=== PATIENT | male | born 1970 | race African-American/Black ===

== ENCOUNTER 2018-03-03 10:20 | Emergency (ER) | payer BC ==
--- NOTE | 2018-03-03 11:03 | RAD REPORT ---
EXAM DESCRIPTION: RAD - Hand Right 3 View - 03/03/2018 10:50 am CLINICAL HISTORY: Third digit pain. COMPARISON: None. FINDINGS: Mild soft tissue swelling affects the third finger. No acute fracture or dislocation seen. No aggressive marrow lesion. Evidence of an old triquetrum fracture noted.
--- NOTE | 2018-03-03 11:27 | ER ---
Nurse's Notes [facility] Name: Edgar Soria Age: 47 yrs Sex: Male : 1970 Arrival Date: 03/03/2018 Time: 10:25 Bed Treatment Private MD: None, None Diagnosis: Subungal hematoma Presentation: 03/03 10:29 Presenting complaint: Patient states: 2 days ago, i hurt my R middle finger on a hj cabinet; denies tingling and numbness;. Transition of care: patient was not received from another setting of care. Onset of symptoms was March 03, 2018. Care prior to arrival: None. 10:29 Method Of Arrival: Ambulatory 10:29 Acuity: KARMA 4 11:00 Initial Sepsis Screen: Does the patient meet any 2 criteria? No. Patient's initial iw sepsis screen is negative. Does the patient have a suspected source of infection? No. Patient's initial sepsis screen is negative. Triage Assessment: 10:30 General: Appears in no apparent distress. uncomfortable, Behavior is calm, cooperative, hj appropriate for age. Pain: Complains of pain in dorsal aspect of distal phalanx of right middle finger. Musculoskeletal: Circulation, motion, and sensation intact. Capillary refill < 3 seconds, Range of motion: intact in all extremities. Injury Description: Crush injury. Historical: - Allergies: 10:30 No Known Allergies; hj - Home Meds: 10:30 None [Active]; hj - PMHx: 10:30 None; hj - PSHx: 10:30 None; hj - Immunization history:: Adult Immunizations. - Social history:: Smoking status: . Screenin:00 Abuse screen: Denies threats or abuse. Denies injuries from another. Nutritional iw screening: No deficits noted. Tuberculosis screening: No symptoms or risk factors identified. Fall Risk None identified. Assessment: 11:10 General: Appears in no apparent distress. comfortable, Behavior is calm, cooperative. iw Pain: Complains of pain in dorsal aspect of distal phalanx of right middle finger. Neuro: Level of Consciousness is awake, alert, obeys commands, Oriented to person, place, time. Cardiovascular: Patient's skin is warm and dry. Respiratory: Respiratory effort is even, unlabored. Derm: Skin is pink, warm \T\ dry. normal. Musculoskeletal: Range of motion: intact in all extremities. Vital Signs: 10:31 BP 134 / 75; Pulse 60; Resp 18; Temp 98.1(TE); Pulse Ox 98% on R/A; Weight 86.18 kg; hj Height 5 ft. 9 in. (175.26 cm); Pain 5/10; 10:31 Body Mass Index 28.06 (86.18 kg, 175.26 cm) ED Course: 10:25 Patient arrived in ED. mr 10:25 None, None is Private Physician. mr 10:29 Triage completed. hj 10:30 Arm band placed on right wrist. hj 10:44 X-ray completed. Portable x-ray completed in exam room. Patient tolerated procedure la2 well. 10:50 XRAY Hand RIGHT 3 View In Process Unspecified. EDMS 11:10 Patient has correct armband on for positive identification. iw 11:20 Lisa Romero FNP-C is [facility]. snw 11:20 Stephen Larson MD is Attending Physician. snw 11:28 Sonali Beckett, RN is Primary Nurse. iw 12:10 No provider procedures requiring assistance completed. Patient did not have IV access iw during this emergency room visit. Administered Medications: No medications were administered Outcome: 11:26 Discharge ordered by . snw 12:10 Discharged to home ambulatory. iw 12:10 Condition: good 12:10 Discharge instructions given to patient, Instructed on discharge instructions, follow up and referral plans. medication usage, Demonstrated understanding of instructions, follow-up care, medications, Prescriptions given X 1. 12:12 Patient left the ED. bd Signatures: Dispatcher [employer] EDMS Ramila Floyd Shelly, FNP-C COMMUTATOR REPAIRER-Dilcia Springer mr Sonali Beckett, RN RN Mendez Sanabria RN RN Melissa Williamson la2 Corrections: (The following items were deleted from the chart) 10:30 10:29 Presenting complaint: Patient states: 2 days ago, i hurt my R middle finger on a hj cabinet; hj 10:33 10:31 Pulse 60bpm; Resp 18bpm; Pulse Ox 98% RA; Temp 98.1F Temporal; 86.18 kg; Height 5 hj ft. 9 in.; BMI: 28.0; Pain 5/10; hj
--- NOTE | 2018-03-03 11:27 | EDPHYS ---
Physician Documentation [facility] Name: Edgar Soria Age: 47 yrs Sex: Male : 1970 Arrival Date: 03/03/2018 Time: 10:25 Bed Treatment Private MD: None, None ED Physician Stephen Larson HPI: 03/03 11:29 This 47 yrs old Black Male presents to ER via Ambulatory with complaints of Finger snw Injury. 11:29 The patient or guardian reports a contusion, pain, swelling. The complaints affect the snw DIP of right middle finger. Context: The problem was sustained at home, resulted from a crush injury, by a house door. Onset: The symptoms/episode began/occurred acutely. Modifying factors: The symptoms are alleviated by nothing. Severity of symptoms: At their worst the symptoms were moderate. The patient has not experienced similar symptoms in the past. The patient has not recently seen a physician. working on a cabinet that fell onto distal right middle finger. Historical: - Allergies: 10:30 No Known Allergies; hj - Home Meds: 10:30 None [Active]; hj - PMHx: 10:30 None; hj - PSHx: 10:30 None; hj - Immunization history:: Adult Immunizations. - Social history:: Smoking status: . ROS: 11:29 Constitutional: Negative for fever, chills, and weight loss, Eyes: Negative for injury, snw pain, redness, and discharge, ENT: Negative for injury, pain, and discharge, Neck: Negative for injury, pain, and swelling, Cardiovascular: Negative for chest pain, palpitations, and edema, Respiratory: Negative for shortness of breath, cough, wheezing, and pleuritic chest pain, Abdomen/GI: Negative for abdominal pain, nausea, vomiting, diarrhea, and constipation, Back: Negative for injury and pain, : Negative for injury, bleeding, discharge, and swelling, Skin: Negative for injury, rash, and discoloration, Neuro: Negative for headache, weakness, numbness, tingling, and seizure. 11:29 MS/extremity: Positive for injury or acute deformity, pain, of the dorsal aspect of distal phalanx of right middle finger. Exam: 11:28 Constitutional: This is a well developed, well nourished patient who is awake, alert, snw and in no acute distress. Head/Face: Normocephalic, atraumatic. Eyes: Pupils equal round and reactive to light, extra-ocular motions intact. Lids and lashes normal. Conjunctiva and sclera are non-icteric and not injected. Cornea within normal limits. Periorbital areas with no swelling, redness, or edema. ENT: Nares patent. No nasal discharge, no septal abnormalities noted. Tympanic membranes are normal and external auditory canals are clear. Oropharynx with no redness, swelling, or masses, exudates, or evidence of obstruction, uvula midline. Mucous membranes moist. Neck: Trachea midline, no thyromegaly or masses palpated, and no cervical lymphadenopathy. Supple, full range of motion without nuchal rigidity, or vertebral point tenderness. No Meningismus. Chest/axilla: Normal chest wall appearance and motion. Nontender with no deformity. No lesions are appreciated. Cardiovascular: Regular rate and rhythm with a normal S1 and S2. No gallops, murmurs, or rubs. Normal PMI, no JVD. No pulse deficits. Respiratory: Lungs have equal breath sounds bilaterally, clear to auscultation and percussion. No rales, rhonchi or wheezes noted. No increased work of breathing, no retractions or nasal flaring. Abdomen/GI: Soft, non-tender, with normal bowel sounds. No distension or tympany. No guarding or rebound. No evidence of tenderness throughout. Back: No spinal tenderness. No costovertebral tenderness. Full range of motion. Skin: Warm, dry with normal turgor. Normal color with no rashes, no lesions, and no evidence of cellulitis. Neuro: Awake and alert, GCS 15, oriented to person, place, time, and situation. Cranial nerves II-XII grossly intact. Motor strength 5/5 in all extremities. Sensory grossly intact. Cerebellar exam normal. Normal gait. Psych: Awake, alert, with orientation to person, place and time. Behavior, mood, and affect are within normal limits. 11:28 Musculoskeletal/extremity: Extremities: grossly normal except: noted in the dorsal aspect of distal phalanx of right middle finger: pain, tenderness, ROM: intact in all extremities. Vital Signs: 10:31 BP 134 / 75; Pulse 60; Resp 18; Temp 98.1(TE); Pulse Ox 98% on R/A; Weight 86.18 kg; hj Height 5 ft. 9 in. (175.26 cm); Pain 5/10; 10:31 Body Mass Index 28.06 (86.18 kg, 175.26 cm) MDM: 11:20 Patient medically screened. snw 11:29 Data reviewed: vital signs, nurses notes. Data interpreted: Pulse oximetry: on room air snw is 98 %. Interpretation: normal. Counseling: I had a detailed discussion with the patient and/or guardian regarding: the historical points, exam findings, and any diagnostic results supporting the discharge/admit diagnosis, the presence of at least one elevated blood pressure reading (>120/80) during this emergency department visit, radiology results, to return to the emergency department if symptoms worsen or persist or if there are any questions or concerns that arise at home. Special discussion: I have referred the patient to see his PCP for further evaluation of high blood pressure. Based on the history and exam findings, there is no indication for further emergent testing or inpatient evaluation. I discussed with the patient/guardian the need to see the primary care provider for further evaluation of the symptoms. 03/03 10:32 Order name: XRAY Hand RIGHT 3 View; Complete Time: 11:11 Administered Medications: No medications were administered Disposition: 03/03/18 11:26 Discharged to Home. Impression: Subungal hematoma. - Condition is Stable. - Discharge Instructions: Hypertension, Subungual Hematoma. - Prescriptions for Diclofenac Sodium 75 mg Oral Tablet Sustained Release - take 1 tablet by ORAL route 2 times per day; 30 tablet. - Work release form, Medication Reconciliation Form, Thank You Letter, Antibiotic Education, Prescription Opioid Use form. - Follow up: Private Physician; When: 2 - 3 days; Reason: Recheck today's complaints, Continuance of care, Re-evaluation by your physician. Follow up: Emergency Department; When: As needed; Reason: Worsening of condition. Addendum: 03/06/2018 06:09 Co-signature as Attending Physician, Stephen Larson MD Available for consultation at p s1 all times. . Signatures: Dispatcher [employer] EDMS Ramila Floyd Shelly, WATER PUMPER-C WATER PUMPER-Csnw Sonali Beckett RN RN Mendez Sanabria RN RN hj Singer, Phillip, MD MD ps1
== END 2018-03-03 12:12 | disposition home or self-care (01) ==
LOC: ER 10:20
DX: S60.131A Contusion of right middle finger with damage to nail, initial encounter (principal); W23.0XXA Caught, crushed, jammed, or pinched between moving objects, initial encounter; Y93.9 Activity, unspecified; Y92.009 Unspecified place in unspecified non-institutional (private) residence as the place of occurrence of the external cause
CPT/HCPCS: 99283

== ENCOUNTER 2019-06-18 00:22 | Emergency (ER) | payer BC ==
--- NOTE | 2019-06-18 01:58 | ER ---
Nurse's Notes [facility] Name: Edgar Soria Age: 48 yrs Sex: Male : 1970 Arrival Date: 06/18/2019 Time: 00:25 Bed 19 Private MD: Diagnosis: Nausea;Diarrhea, unspecified Presentation: 06/18 00:40 Presenting complaint: Patient states: no pain but I feel like I am going to vomit and dm5 have a full feeling. it started after eating shrimp. Pt states he has had 7 watery bowel movements since dinner. Transition of care: patient was not received from another setting of care. Onset of symptoms was June 17, 2019 at 14:00. Risk Assessment: Do you want to hurt yourself or someone else? Patient reports no desire to harm self or others. Initial Sepsis Screen: Does the patient meet any 2 criteria? No. Patient's initial sepsis screen is negative. Does the patient have a suspected source of infection? No. Patient's initial sepsis screen is negative. Care prior to arrival: None. 00:40 Method Of Arrival: Ambulatory dm5 00:40 Acuity: KARMA 3 dm5 Triage Assessment: 00:43 General: Appears in no apparent distress. Behavior is calm, cooperative. Pain: Denies dm5 pain. Neuro: Level of Consciousness is awake, alert, obeys commands, Oriented to person, place, time. Cardiovascular: No deficits noted. Respiratory: Airway is patent Respiratory effort is even, unlabored, relaxed, Respiratory pattern is regular, symmetrical. GI: Reports diarrhea, nausea, "full feeling". Derm: Skin is pink, warm \\T\\ dry. Historical: - Allergies: 00:43 No Known Allergies; dm5 - Home Meds: 00:43 None [Active]; dm5 - PMHx: 00:43 None; dm5 - PSHx: 00:43 None; dm5 - Immunization history:: Adult Immunizations up to date. - Social history:: Smoking status: Patient/guardian denies using tobacco. - Ebola Screening: : Patient negative for fever greater than or equal to 101.5 degrees Fahrenheit, and additional compatible Ebola Virus Disease symptoms Patient denies exposure to infectious person Patient denies travel to an Ebola-affected area in the 21 days before illness onset No symptoms or risks identified at this time. - Family history:: not pertinent. Screenin:29 Abuse screen: Denies threats or abuse. Denies injuries from another. Nutritional rr5 screening: No deficits noted. Tuberculosis screening: No symptoms or risk factors identified. Fall Risk None identified. Total Blum Fall Scale indicates No Risk (0-24 pts). Assessment: 01:15 General: Appears in no apparent distress. comfortable, Behavior is calm, cooperative, rr5 appropriate for age. 01:15 Pain: Complains of pain in abdomen Pain does not radiate. Pain currently is 2 out of 10 rr5 on a pain scale. Quality of pain is described as aching, Pain began gradually, Is intermittent. Neuro: Level of Consciousness is awake, alert, obeys commands, Oriented to person, place, time, situation, Appropriate for age. Cardiovascular: Capillary refill < 3 seconds Patient's skin is warm and dry. Respiratory: Airway is patent Respiratory effort is even, unlabored, Respiratory pattern is regular, symmetrical. GI: Abdomen is round Bowel sounds present X 4 quads. Abd is soft Reports upper abdominal pain, diarrhea, nausea, vomiting. : No signs and/or symptoms were reported regarding the genitourinary system. EENT: No signs and/or symptoms were reported regarding the EENT system. Derm: Skin is intact, Skin is pink, warm \\T\\ dry. Skin temperature is warm. Musculoskeletal: Circulation, motion, and sensation intact. Capillary refill < 3 seconds. 02:00 Reassessment: Patient appears in no apparent distress at this time. Patient is alert, rr5 oriented x 3, equal unlabored respirations, skin warm/dry/pink. discharge instruction given and explained without complaints made. Vital Signs: 00:43 BP 133 / 85; Pulse 58; Resp 16; Temp 97.9; Pulse Ox 99% on R/A; Weight 92.99 kg; Height dm5 5 ft. 10 in. (177.80 cm); Pain 0/10; 02:00 BP 124 / 82; Pulse 60; Resp 17; Pulse Ox 100% on R/A; rr5 00:43 Body Mass Index 29.41 (92.99 kg, 177.80 cm) dm5 ED Course: 00:25 Patient arrived in ED. ds1 00:42 Triage completed. dm5 00:43 Arm band placed on left wrist. Patient placed in waiting room. dm5 01:06 Shane Sinclair, RN is Primary Nurse. rr5 01:15 Patient has correct armband on for positive identification. Bed in low position. Call rr5 light in reach. Side rails up X2. Pulse ox on. NIBP on. 01:22 Tavo Wilson MD is Attending Physician. minoo 02:05 No provider procedures requiring assistance completed. Patient did not have IV access rr5 during this emergency room visit. Administered Medications: No medications were administered Outcome: 01:56 Discharge ordered by . minoo 02:05 Discharged to home ambulatory. rr5 02:05 Condition: stable 02:05 Discharge instructions given to patient, Instructed on discharge instructions, follow up and referral plans. medication usage, Demonstrated understanding of instructions, follow-up care, medications, Prescriptions given X 2. 02:07 Patient left the ED. rr5 Signatures: Karla Sims, RN RN dm5 Tavo Wilson MD MD cha Sanford, Demi ds1 Shane Sinclair, RN RN rr5
--- NOTE | 2019-06-18 01:59 | EDPHYS ---
Physician Documentation [facility] Name: Edgar Soria Age: 48 yrs Sex: Male : 1970 Arrival Date: 06/18/2019 Time: 00:25 Bed 19 Private MD: AVERY Physician Tavo Wilson HPI: 06/18 01:52 This 48 yrs old Black Male presents to ER via Ambulatory with complaints of Abdominal minoo Pain. 01:52 The patient presents to the emergency department with nausea, diarrhea. Onset: The minoo symptoms/episode began/occurred just prior to arrival, yesterday. Possible causes: unknown. The symptoms are aggravated by nothing. The symptoms are alleviated by nothing. Associated signs and symptoms: The patient has no apparent associated signs or symptoms. Severity of symptoms: At their worst the symptoms were mild in the emergency department the symptoms are unchanged. The patient has not experienced similar symptoms in the past. Historical: - Allergies: 00:43 No Known Allergies; dm5 - Home Meds: 00:43 None [Active]; dm5 - PMHx: 00:43 None; dm5 - PSHx: 00:43 None; dm5 - Immunization history:: Adult Immunizations up to date. - Social history:: Smoking status: Patient/guardian denies using tobacco. - Ebola Screening: : Patient negative for fever greater than or equal to 101.5 degrees Fahrenheit, and additional compatible Ebola Virus Disease symptoms Patient denies exposure to infectious person Patient denies travel to an Ebola-affected area in the 21 days before illness onset No symptoms or risks identified at this time. - Family history:: not pertinent. ROS: 01:52 Constitutional: Negative for fever, chills, and weight loss, Eyes: Negative for injury, minoo pain, redness, and discharge, ENT: Negative for injury, pain, and discharge, Neck: Negative for injury, pain, and swelling, Cardiovascular: Negative for chest pain, palpitations, and edema, Respiratory: Negative for shortness of breath, cough, wheezing, and pleuritic chest pain, Back: Negative for injury and pain, : Negative for injury, bleeding, discharge, and swelling, MS/Extremity: Negative for injury and deformity, Skin: Negative for injury, rash, and discoloration, Neuro: Negative for headache, weakness, numbness, tingling, and seizure, Psych: Negative for depression, anxiety, suicide ideation, homicidal ideation, and hallucinations, Allergy/Immunology: Negative for hives, rash, and allergies, Endocrine: Negative for neck swelling, polydipsia, polyuria, polyphagia, and marked weight changes, Hematologic/Lymphatic: Negative for swollen nodes, abnormal bleeding, and unusual bruising. 01:52 Abdomen/GI: Positive for nausea, diarrhea. Exam: 01:52 Constitutional: This is a well developed, well nourished patient who is awake, alert, minoo and in no acute distress. Head/Face: Normocephalic, atraumatic. Eyes: Pupils equal round and reactive to light, extra-ocular motions intact. Lids and lashes normal. Conjunctiva and sclera are non-icteric and not injected. Cornea within normal limits. Periorbital areas with no swelling, redness, or edema. ENT: Nares patent. No nasal discharge, no septal abnormalities noted. Tympanic membranes are normal and external auditory canals are clear. Oropharynx with no redness, swelling, or masses, exudates, or evidence of obstruction, uvula midline. Mucous membranes moist. Neck: Trachea midline, no thyromegaly or masses palpated, and no cervical lymphadenopathy. Supple, full range of motion without nuchal rigidity, or vertebral point tenderness. No Meningismus. Chest/axilla: Normal chest wall appearance and motion. Nontender with no deformity. No lesions are appreciated. Cardiovascular: Regular rate and rhythm with a normal S1 and S2. No gallops, murmurs, or rubs. Normal PMI, no JVD. No pulse deficits. Respiratory: Lungs have equal breath sounds bilaterally, clear to auscultation and percussion. No rales, rhonchi or wheezes noted. No increased work of breathing, no retractions or nasal flaring. Back: No spinal tenderness. No costovertebral tenderness. Full range of motion. Male : Normal genitalia with no discharge or lesions. Skin: Warm, dry with normal turgor. Normal color with no rashes, no lesions, and no evidence of cellulitis. MS/ Extremity: Pulses equal, no cyanosis. Neurovascular intact. Full, normal range of motion. Neuro: Awake and alert, GCS 15, oriented to person, place, time, and situation. Cranial nerves II-XII grossly intact. Motor strength 5/5 in all extremities. Sensory grossly intact. Cerebellar exam normal. Normal gait. Psych: Awake, alert, with orientation to person, place and time. Behavior, mood, and affect are within normal limits. 01:52 Abdomen/GI: Exam negative for Inspection: abdomen appears normal, Bowel sounds: normal, Palpation: abdomen is soft and non-tender, Liver: no appreciated palpable abnormalities, Hernia: not appreciated. Vital Signs: 00:43 BP 133 / 85; Pulse 58; Resp 16; Temp 97.9; Pulse Ox 99% on R/A; Weight 92.99 kg; Height dm5 5 ft. 10 in. (177.80 cm); Pain 0/10; 02:00 BP 124 / 82; Pulse 60; Resp 17; Pulse Ox 100% on R/A; rr5 00:43 Body Mass Index 29.41 (92.99 kg, 177.80 cm) dm5 MDM: 01:22 Patient medically screened. [facility] 01:55 Data reviewed: vital signs, nurses notes. [facility] Administered Medications: No medications were administered Disposition: 06/18/19 01:56 Discharged to Home. Impression: Nausea, Diarrhea, unspecified. - Condition is Stable. - Discharge Instructions: Food Choices to Help Relieve Diarrhea, Adult, Diarrhea, Adult, Nausea, Adult, Diarrhea, Adult, [id number]. - Prescriptions for Zofran 4 mg Oral Tablet - take 1 tablet by ORAL route every 12 hours As needed; 14 tablet. Bentyl 20 mg Oral Tablet - take 1 tablet by ORAL route every 6 hours As needed; 20 tablet. - Medication Reconciliation Form, Thank You Letter, Antibiotic Education, Prescription Opioid Use form. - Follow up: Private Physician; When: 2 - 3 days; Reason: Recheck today's complaints, Continuance of care, Re-evaluation by your physician. - Problem is new. - Symptoms have improved. Signatures: Karla Sims RN RN dm5 Tavo Wilson MD MD cha Roque, Raymond RN RN rr5 Corrections: (The following items were deleted from the chart) 02:07 01:56 06/18/2019 01:56 Discharged to Home. Impression: Nausea; Diarrhea, unspecified. rr5 Condition is Stable. Forms are Medication Reconciliation Form, Thank You Letter, Antibiotic Education, Prescription Opioid Use. Follow up: Private Physician; When: 2 - 3 days; Reason: Recheck today's complaints, Continuance of care, Re-evaluation by your physician. Problem is new. Symptoms have improved. minoo
== END 2019-06-18 02:07 | disposition home or self-care (01) ==
LOC: ER 00:22
DX: R19.7 Diarrhea, unspecified (principal)
CPT/HCPCS: 99283

== ENCOUNTER 2019-08-26 08:46 | Emergency (ER) | payer BC ==
[2019-08-26] MEDS ORDERED: KETOROLAC 30 MG/ML INJ ONE (09:42)
[2019-08-26 09:58] LABS: Urine Bacteria NONE SEEN /HPF (NONE SEEN); Urine Culture Reflex Order NOT NEEDED; Urine RBC NONE SEEN /HPF (NONE SEEN)
[2019-08-26 09:59] LABS: Absolute Lymphocytes (CBC) 1.3 K/uL (0.7-4.9); Basophils % 0.3 % (0-1.3); Hematocrit 42.7 % (39.6-49.0); Lymphocytes % 41.1 % (15.3-44.8); RBC Red Blood Cell Count 5.21 M/uL (4.33-5.43)
[2019-08-26 10:24] LABS: Bilirubin Direct 0.1 mg/dL (0-0.2); Bilirubin Total 0.3 mg/dL (0.2-1.0); Potassium 3.9 mmol/L (3.5-5.1); Protein, Total 7.8 g/dL (6.4-8.2)
--- NOTE | 2019-08-26 10:27 | RAD REPORT ---
EXAM DESCRIPTION: CT - Stone Protocol - 08/26/2019 9:54 am CLINICAL HISTORY: ABD PAIN COMPARISON: No comparisons TECHNIQUE: Axial [address] imaging of the abdomen and pelvis was performed without IV contrast. No IV contrast was given because of allergy, abnormal renal function, patient refusal or physician re quest. No oral contrast administered. All CT scans are performed using dose optimization technique as appropriate and may include automated exposure control or mA/KV adjustment according to patient size. FINDINGS: No suspicious findings in the lung bases. The liver, spleen and pancreas show no suspicious findings on non-contrast imaging. Gallbladder and b iliary tree are also without suspicious finding. No hydronephrosis or suspicious renal mass. No obstructing or nonobstructing calculi seen. No signifi cant adrenal finding. Isodense renal masses and pyelonephritis cannot be excluded in the absence of I V contrast. No stones in a partially contracted bladder. No abnormal bladder wall thickening. Prostat e gland and seminal vesicles within normal range. No dilated bowel loops or bowel wall thickening. No free air, free fluid or inflammatory stranding. No hernia, mass or bulky lymphadenopathy. No suspicious bony findings. IMPRESSION: Non-contrast enhanced CT abdomen and pelvis imaging show no significant or suspicious fi nding. No abnormality seen to explain left lower quadrant pain. Full assessment is limited is the absence of IV contrast.
--- NOTE | 2019-08-26 11:08 | ER ---
Nurse's Notes [facility] Name: Edgar Soria Age: 49 yrs Sex: Male : 1970 Arrival Date: 08/26/2019 Time: 08:48 Bed 15 Private MD: Diagnosis: Generalized abdominal pain Presentation: 08/26 09:17 Presenting complaint: Patient states: LLQ pain X 3 days, denies n/v/d, denies urinary iw s/s. Transition of care: patient was not received from another setting of care. Onset of symptoms was August 23, 2019. Risk Assessment: Do you want to hurt yourself or someone else? Patient reports no desire to harm self or others. Initial Sepsis Screen: Does the patient meet any 2 criteria? No. Patient's initial sepsis screen is negative. Does the patient have a suspected source of infection? No. Patient's initial sepsis screen is negative. Care prior to arrival: None. 09:17 Method Of Arrival: Ambulatory iw 09:17 Acuity: KARMA 3 iw Triage Assessment: 09:28 General: Appears in no apparent distress. Behavior is calm, cooperative, appropriate tw2 for age. Pain: Complains of pain in abdomen. GI: Reports lower abdominal pain, upper abdominal pain. Historical: - Allergies: 09:18 No Known Allergies; iw - Home Meds: 09:18 None [Active]; iw - PMHx: 09:18 None; iw - PSHx: 09:18 None; iw - Immunization history:: Adult Immunizations up to date. - Social history:: Smoking status: Patient/guardian denies using tobacco. - Ebola Screening: : Patient negative for fever greater than or equal to 101.5 degrees Fahrenheit, and additional compatible Ebola Virus Disease symptoms Patient denies exposure to infectious person Patient denies travel to an Ebola-affected area in the 21 days before illness onset No symptoms or risks identified at this time. Screenin:29 Abuse screen: Denies threats or abuse. Nutritional screening: No deficits noted. tw2 Tuberculosis screening: No symptoms or risk factors identified. Fall Risk None identified. Assessment: 09:45 General: Appears in no apparent distress. Behavior is calm, cooperative, appropriate tw2 for age. Pain: Complains of pain in abdomen. Neuro: Level of Consciousness is awake, alert, obeys commands, Oriented to person, place, time, situation. Cardiovascular: Heart tones S1 S2 Patient's skin is warm and dry. Respiratory: Airway is patent Respiratory effort is even, unlabored, Respiratory pattern is regular, symmetrical, Breath sounds are clear bilaterally. GI: Abdomen is flat, Bowel sounds present X 4 quads. Abd is soft X 4 quads. : No signs and/or symptoms were reported regarding the genitourinary system. EENT: No signs and/or symptoms were reported regarding the EENT system. Derm: No signs and/or symptoms reported regarding the dermatologic system. Musculoskeletal: Range of motion: intact in all extremities. 10:23 Reassessment: Patient appears in no apparent distress at this time. No changes from tw2 previously documented assessment. Patient and/or family updated on plan of care and expected duration. Pain level reassessed. Patient is alert, oriented x 3, equal unlabored respirations, skin warm/dry/pink. Vital Signs: 09:18 BP 128 / 84; Pulse 58; Resp 16; Temp 97.2; Pulse Ox 99% on R/A; Pain 4/10; iw 10:23 BP 182 / 57; Pulse 66; Resp 17; Pulse Ox 98% on R/A; tw2 ED Course: 08:48 Patient arrived in ED. rg4 09:07 Taye Galvez MD is Attending Physician. gs 09:07 Bed in low position. Call light in reach. tw2 09:17 Triage completed. iw 09:18 Arm band placed on. iw 09:28 Eboni Alonso, RN is Primary Nurse. tw2 09:54 CT Stone Protocol In Process Unspecified. EDMS 11:36 No provider procedures requiring assistance completed. IV discontinued, intact, iw bleeding controlled, No redness/swelling at site. Pressure dressing applied. Administered Medications: 09:48 Drug: TORadol - Ketorolac 15 mg Route: IVP; Site: right antecubital; tw2 11:30 Follow up: Response: No adverse reaction; Pain is decreased iw Outcome: 11:08 Discharge ordered by . gs 11:36 Discharged to home ambulatory. iw 11:36 Condition: good 11:36 Discharge instructions given to patient, Instructed on discharge instructions, follow up and referral plans. Demonstrated understanding of instructions, follow-up care. 11:37 Patient left the ED. iw Signatures: Dispatcher [employer] Sonali Bolden RN RN iw Eboni Alonso RN RN tw2 Oneyda Sargent rg4 Taye Galvez MD MD
--- NOTE | 2019-08-26 11:09 | EDPHYS ---
Physician Documentation [facility] Name: Edgar Soria Age: 49 yrs Sex: Male : 1970 Arrival Date: 08/26/2019 Time: 08:48 Bed 15 Private MD: ED Physician Taye Galvez HPI: 08/26 10:41 This 49 yrs old Black Male presents to ER via Ambulatory with complaints of Abdominal gs Pain. 12:58 The patient presents with abdominal pain in the left upper quadrant, in the left lower gs quadrant. Onset: The symptoms/episode began/occurred gradually. Onset: The symptoms/episode began/occurred yesterday. The symptoms do not radiate. Associated signs and symptoms: Pertinent negatives: fever, vomiting. The symptoms are described as crampy, dull. Modifying factors: The symptoms are alleviated by nothing, the symptoms are aggravated by nothing. Severity of pain: At its worst the pain was moderate in the emergency department the pain has improved mildly. The patient has experienced a previous episode. Historical: - Allergies: 09:18 No Known Allergies; iw - Home Meds: 09:18 None [Active]; iw - PMHx: 09:18 None; iw - PSHx: 09:18 None; iw - Immunization history:: Adult Immunizations up to date. - Social history:: Smoking status: Patient/guardian denies using tobacco. - Ebola Screening: : Patient negative for fever greater than or equal to 101.5 degrees Fahrenheit, and additional compatible Ebola Virus Disease symptoms Patient denies exposure to infectious person Patient denies travel to an Ebola-affected area in the 21 days before illness onset No symptoms or risks identified at this time. ROS: 12:58 All other systems are negative. gs Exam: 12:58 Head/Face: Normocephalic, atraumatic. Eyes: Pupils equal round and reactive to light, gs extra-ocular motions intact. Lids and lashes normal. Conjunctiva and sclera are non-icteric and not injected. Cornea within normal limits. Periorbital areas with no swelling, redness, or edema. ENT: Nares patent. No nasal discharge, no septal abnormalities noted. Tympanic membranes are normal and external auditory canals are clear. Oropharynx with no redness, swelling, or masses, exudates, or evidence of obstruction, uvula midline. Mucous membranes moist. Neck: Trachea midline, no thyromegaly or masses palpated, and no cervical lymphadenopathy. Supple, full range of motion without nuchal rigidity, or vertebral point tenderness. No Meningismus. Chest/axilla: Normal chest wall appearance and motion. Nontender with no deformity. No lesions are appreciated. Cardiovascular: Regular rate and rhythm with a normal S1 and S2. No gallops, murmurs, or rubs. Normal PMI, no JVD. No pulse deficits. Respiratory: Lungs have equal breath sounds bilaterally, clear to auscultation and percussion. No rales, rhonchi or wheezes noted. No increased work of breathing, no retractions or nasal flaring. Back: No spinal tenderness. No costovertebral tenderness. Full range of motion. Male : Normal genitalia with no discharge or lesions. Skin: Warm, dry with normal turgor. Normal color with no rashes, no lesions, and no evidence of cellulitis. MS/ Extremity: Pulses equal, no cyanosis. Neurovascular intact. Full, normal range of motion. Neuro: Awake and alert, GCS 15, oriented to person, place, time, and situation. Cranial nerves II-XII grossly intact. Motor strength 5/5 in all extremities. Sensory grossly intact. Cerebellar exam normal. Normal gait. 12:58 Constitutional: The patient appears alert, awake. 12:58 Abdomen/GI: Palpation: mild abdominal tenderness, in the left upper quadrant and left lower quadrant. Vital Signs: 09:18 BP 128 / 84; Pulse 58; Resp 16; Temp 97.2; Pulse Ox 99% on R/A; Pain 4/10; iw 10:23 BP 182 / 57; Pulse 66; Resp 17; Pulse Ox 98% on R/A; tw2 MDM: 09:26 Patient medically screened. gs 12:58 Differential diagnosis: diverticulitis, non-specific abd pain, Ureterolithiasis. Data gs reviewed: vital signs, nurses notes, lab test result(s), radiologic studies. Counseling: I had a detailed discussion with the patient and/or guardian regarding: the historical points, exam findings, and any diagnostic results supporting the discharge/admit diagnosis, the presence of at least one elevated blood pressure reading (>120/80) during this emergency department visit. Response to treatment: the patient's symptoms have resolved after treatment. Special discussion: I have referred the patient to see his PCP for further evaluation of high blood pressure. 08/26 09:35 Order name: Basic Metabolic Panel; Complete Time: 10:36 gs 08/26 09:35 Order name: CBC with Diff; Complete Time: 10:36 gs 08/26 09:35 Order name: Hepatic Function; Complete Time: 10:36 gs 08/26 09:35 Order name: Lipase; Complete Time: 10:36 gs 08/26 09:35 Order name: Urine Microscopic Only; Complete Time: 10:36 gs 08/26 09:49 Order name: Urine Dipstick--Ancillary (enter results) eb 08/26 09:35 Order name: IV Saline Lock; Complete Time: 09:51 gs 08/26 09:35 Order name: Labs collected and sent; Complete Time: 09:51 gs 08/26 09:35 Order name: Urine Dipstick-Ancillary (obtain specimen); Complete Time: 09:48 gs 08/26 09:35 Order name: CT Stone Protocol; Complete Time: 10:36 Administered Medications: 09:48 Drug: TORadol - Ketorolac 15 mg Route: IVP; Site: right antecubital; tw2 11:30 Follow up: Response: No adverse reaction; Pain is decreased iw Disposition: 08/26/19 11:08 Discharged to Home. Impression: Generalized abdominal pain. - Condition is Stable. - Discharge Instructions: Abdominal Pain, Adult. - Work release form, Medication Reconciliation Form, Thank You Letter, Antibiotic Education, Prescription Opioid Use form. - Follow up: Private Physician; When: 2 - 3 days; Reason: Re-evaluation by your physician. - Problem is new. - Symptoms are resolved. Signatures: Dispatcher [employer] Sonali Bolden RN RN iw Eboni Alonso RN RN tw2 Taye Galvez MD MD gs Corrections: (The following items were deleted from the chart) 11:37 11:08 08/26/2019 11:08 Discharged to Home. Impression: Generalized abdominal pain. iw Condition is Stable. Forms are Work release form, Medication Reconciliation Form, Thank You Letter, Antibiotic Education, Prescription Opioid Use. Follow up: Private Physician; When: 2 - 3 days; Reason: Re-evaluation by your physician. Problem is new. Symptoms are resolved. gs
[2019-08-26 12:04] VITALS: TEMP 97.2
[2019-08-26 12:06] VITALS: BP 182/57; O2SAT 98
[2019-08-26 14:28] LABS: Urine Blood NEGATIVE (NEG); Urine Glucose NEGATIVE (NEG); Urine Protein NEGATIVE (NEG); Urine Specific Gravity 1.015 (1.005-1.030); Urine pH 7.5 (5.0-7.0)
== END 2019-08-26 11:37 | disposition home or self-care (01) ==
LOC: ER 08:46
DX: R10.84 Generalized abdominal pain (principal)
CPT/HCPCS: 36415; 74176; 76377; 80048; 80076; 81003; 81015; 83690; 85025; 96374; 99283